=== PATIENT | female | born 1950 | race Caucasian/White ===

== ENCOUNTER → 2018-02-04 11:41 | Outpatient (CLI) | payer MEDICARE, OTHER, SELFPAY ==
--- NOTE | 2018-02-04 | DI.MG.S_ITS ---
BILATERAL DIGITAL SCREENING MAMMOGRAM 3D/2D WITH CAD: 02/04/2018 CLINICAL: Routine screening. Comparison is made to exams dated: 02/03/2017 mammogram, 01/16/2015 mammogram, and 12/29/2013 mammogram - [facility]. There are scattered fibroglandular elements in both breasts. Current study was also evaluated with a Computer Aided Detection (CAD) system. No significant masses, calcifications, or other findings are seen in either breast. There has been no significant interval change. IMPRESSION: NEGATIVE There is no mammographic evidence of malignancy. A 1 year screening mammogram is recommended. NOTE: For mammograms, a report in lay terms will be sent to the patient. Approximately 15% of breast malignancies will not be visualized mammographically. In the management of a palpable breast mass, a negative mammogram must not discourage biopsy of a clinically suspicious lesion. Electronically Signed By: Gali prince/keven:02/04/2018 13:46:32 letter sent: Normal Exam ACR BI-RADS Category 1: Negative 3341F
== END ==
PROVIDERS: Family Provider Physician Assistant; PCP Physician Assistant; Visit Provider Physician Assistant
DX: Z12.31 Encounter for screening mammogram for malignant neoplasm of breast (principal)
CPT/HCPCS: 77063; 77067

== ENCOUNTER → 2019-01-23 11:31 | Outpatient (CLI) | payer MEDICARE, OTHER, SELFPAY ==
--- NOTE | 2019-01-23 11:34 | DI.RAD.S_ITS ---
PROCEDURE: XR FINGER LT MIN 2V INDICATIONS: Fall, swelling, bruising over proximal finger TECHNIQUE: AP hand, 2 views of the left fifth finger(s) acquired. COMPARISON: None. FINDINGS: Bones: Mildly displaced fracture of the proximal aspect of the proximal phalanx of the fifth digit. Soft tissues: No suspicious soft tissue calcifications. IMPRESSION: Fifth digit fracture. Dictated by: Madelaine Villasenor M.D. on 01/23/2019 at 10:55 Approved by: Madelaine Villasenor M.D. on 01/23/2019 at 10:55
== END ==
PROVIDERS: Family Provider Internal Medicine; PCP Physician Assistant; Visit Provider Physician Assistant
DX: S62.617A Displaced fracture of proximal phalanx of left little finger, initial encounter for closed fracture (principal); W19.XXXA Unspecified fall, initial encounter
CPT/HCPCS: 73140

== ENCOUNTER → 2019-02-09 08:47 | Outpatient (CLI) | payer MEDICARE, OTHER, SELFPAY ==
--- NOTE | 2019-02-09 | DI.MG.S_ITS ---
BILATERAL DIGITAL SCREENING MAMMOGRAM 3D/2D WITH CAD: 02/09/2019 CLINICAL: Routine screening. Comparison is made to exams dated: 12/12/2010 mammogram, 02/04/2018 mammogram, 02/03/2017 mammogram, 01/16/2015 mammogram, and 12/29/2013 mammogram - [facility]. There are scattered fibroglandular elements in both breasts. Current study was also evaluated with a Computer Aided Detection (CAD) system. There are benign calcifications in both breasts. No significant masses, calcifications, or other findings are seen in either breast. There has been no significant interval change. IMPRESSION: There is no mammographic evidence of malignancy. A 1 year screening mammogram is recommended. This exam was interpreted at Station ID: [id number]. NOTE: For mammograms, a report in lay terms will be sent to the patient. Approximately 15% of breast malignancies will not be visualized mammographically. In the management of a palpable breast mass, a negative mammogram must not discourage biopsy of a clinically suspicious lesion. Electronically Signed By: Binh hancock/keven:02/09/2019 11:26:25 letter sent: Normal Exam ACR BI-RADS Category 2: Benign Finding(s) 3342F
== END ==
PROVIDERS: PCP Internal Medicine; Visit Provider Internal Medicine
DX: Z12.31 Encounter for screening mammogram for malignant neoplasm of breast (principal)
CPT/HCPCS: 77063; 77067

== ENCOUNTER → 2020-02-15 16:36 | Outpatient (CLI) | payer MEDICARE, OTHER, SELFPAY ==
--- NOTE | 2020-02-15 16:37 | DI.MG.S_ITS ---
BILATERAL DIGITAL SCREENING MAMMOGRAM 3D/2D WITH CAD: 02/15/2020 CLINICAL: Routine screening. Comparison is made to exams dated: 02/09/2019 mammogram, 02/04/2018 mammogram, and 02/03/2017 mammogram - [facility]. There are scattered fibroglandular elements in both breasts. Current study was also evaluated with a Computer Aided Detection (CAD) system. There are benign calcifications in both breasts. No significant masses, calcifications, or other findings are seen in either breast. There has been no significant interval change. IMPRESSION: There is no mammographic evidence of malignancy. A 1 year screening mammogram is recommended. This exam was interpreted at Station ID: [id number]. NOTE: For mammograms, a report in lay terms will be sent to the patient. Approximately 15% of breast malignancies will not be visualized mammographically. In the management of a palpable breast mass, a negative mammogram must not discourage biopsy of a clinically suspicious lesion. Electronically Signed By: Binh hancock/keven:02/15/2020 17:02:36 letter sent: Normal Exam ACR BI-RADS Category 2: Benign Finding(s) 3342F
== END ==
PROVIDERS: PCP Internal Medicine; Referring Provider Internal Medicine; Visit Provider Internal Medicine
DX: Z12.31 Encounter for screening mammogram for malignant neoplasm of breast (principal)
CPT/HCPCS: 77063; 77067

== ENCOUNTER → 2020-03-06 07:34 | Outpatient (CLI) | payer MEDICARE, OTHER, SELFPAY ==
[2020-03-06 09:01] LABS: Add Manual Diff / Slide Review NO; Basophils Absolute Auto 0 /uL (0-100); Basophils Percent Auto 1.1 % (0-2); Eosinophils Absolute Auto 0 /uL (0-450); Eosinophils Percent Auto 1.4 % (2-4); Hematocrit 37.1 % (36-46); Hemoglobin 12.6 g/dL (12.0-16.0); Lymphocytes Absolute Auto 800 /uL (1100-4500); Lymphocytes Percent Auto 24.3 % (25-40); Mean Corpuscular Hemoglobin 32.6 PG (26-34); Mean Corpuscular Volume 95.9 fL (80-100); Monocytes Absolute Auto 300 /uL (0-900); Monocytes Percent Auto 9.6 % (3-14); Neutrophils Absolute Auto 2200 /uL (1500-7000); Neutrophils Percent Auto 63.6 % (50-75); Platelet Count 197 X10^3/uL (150-400); Red Blood Cell Count 3.87 X10^6/uL (4.0-5.2); Red Cell Distribution Width 13.4 % (11.6-14.8); White Blood Cell Count 3.4 X10^3/uL (4.5-11.0)
[2020-03-06 09:22] LABS: Alanine Aminotransferase 16 IU/L (<35); Albumin 4.1 g/dL (3.5-5.0); Albumin Globulin Ratio 1.4 (1.0-2.8); Alkaline Phosphatase 80 U/L (38-126); Aspartate Aminotransferase 30 IU/L (14-36); BUN Creatinine Ratio 23.7 (6-22); Bilirubin Total 0.7 mg/dL (0.2-1.3); Blood Urea Nitrogen 14 mg/dL (7-17); Calcium 9.4 mg/dL (8.4-10.2); Carbon Dioxide 30 mmol/L (22-32); Chloride 105 mmol/L (98-107); Cholesterol 224 mg/dL (140-199); Estimated Glomerular Filt Rate > 60.0 mL/min (>60); Globulin 2.9 g/dL (1.7-4.1); Glucose 88 mg/dL (80-110); HDL Cholesterol 66 mg/dL (40-60); HEMOLYSIS < 15 (0-50); LDL Cholesterol Calculated 139 mg/dL (<100); Potassium 4.2 mmol/L (3.4-5.1); Sodium 138 mmol/L (137-145); Triglycerides 94 mg/dL (35-150)
[2020-03-06 09:34] LABS: Vitamin D 25 Hydroxy (D3) 57.8 ng/mL (30.0-100.0)
[2020-03-06 09:54] LABS: TSH w/ Reflex to FT4 2.63 uIU/mL (0.47-4.68)
== END ==
PROVIDERS: PCP Internal Medicine; Referring Provider Internal Medicine; Visit Provider Internal Medicine
DX: M81.0 Age-related osteoporosis without current pathological fracture (principal); Z13.220 Encounter for screening for lipoid disorders; I89.0 Lymphedema, not elsewhere classified; R53.83 Other fatigue; E78.5 Hyperlipidemia, unspecified
CPT/HCPCS: 36415; 80053; 80061; 82306; 84443; 85025

== ENCOUNTER → 2020-12-20 07:01 | Outpatient (CLI) | payer MEDICARE, OTHER, SELFPAY ==
[2020-12-20 08:21] LABS: Add Manual Diff / Slide Review NO; Basophils Absolute Auto 0 /uL (0-100); Basophils Percent Auto 1.1 % (0-2); Eosinophils Absolute Auto 100 /uL (0-450); Eosinophils Percent Auto 1.8 % (2-4); Hematocrit 36.8 % (36-46); Hemoglobin 12.4 g/dL (12.0-16.0); Lymphocytes Absolute Auto 900 /uL (1100-4500); Lymphocytes Percent Auto 26.3 % (25-40); Mean Corpuscular HGB Conc 33.7 % (30-36); Mean Corpuscular Hemoglobin 32.2 PG (26-34); Mean Corpuscular Volume 95.5 fL (80-100); Monocytes Absolute Auto 400 /uL (0-900); Neutrophils Absolute Auto 2100 /uL (1500-7000); Neutrophils Percent Auto 59.8 % (50-75); Platelet Count 171 X10^3/uL (150-400); Red Blood Cell Count 3.85 X10^6/uL (4.0-5.2); White Blood Cell Count 3.5 X10^3/uL (4.5-11.0)
[2020-12-20 08:33] LABS: Alanine Aminotransferase 17 IU/L (<35); Albumin Globulin Ratio 1.5 (1.0-2.8); Alkaline Phosphatase 86 U/L (38-126); Aspartate Aminotransferase 31 IU/L (14-36); BUN Creatinine Ratio 29.8 (6-22); Bilirubin Total 0.5 mg/dL (0.2-1.3); Blood Urea Nitrogen 17 mg/dL (7-17); Calcium 9.5 mg/dL (8.4-10.2); Carbon Dioxide 27 mmol/L (22-32); Chloride 104 mmol/L (98-107); Cholesterol 222 mg/dL (140-199); Estimated Glomerular Filt Rate > 60.0 mL/min (>60); Globulin 2.7 g/dL (1.7-4.1); Glucose 80 mg/dL (80-110); HDL Cholesterol 65 mg/dL (40-60); HEMOLYSIS < 15 (0-50); LDL Cholesterol Calculated 139 mg/dL (<100); Potassium 4.3 mmol/L (3.4-5.1); Sodium 138 mmol/L (137-145); Total Protein 6.7 g/dL (6.3-8.2); Triglycerides 89 mg/dL (35-150)
== END ==
PROVIDERS: PCP Family Medicine; Referring Provider Family Medicine; Visit Provider Family Medicine
DX: E78.5 Hyperlipidemia, unspecified (principal)
CPT/HCPCS: 36415; 80053; 80061; 85025

== ENCOUNTER → 2021-03-29 15:23 | Outpatient (CLI) | payer MEDICARE, OTHER, SELFPAY ==
--- NOTE | 2021-03-29 15:26 | DI.MG.S_ITS ---
BILATERAL DIGITAL SCREENING MAMMOGRAM 3D/2D WITH CAD: 03/29/2021 CLINICAL: Routine screening. Comparison is made to exams dated: 02/15/2020 mammogram, 02/09/2019 mammogram, and 02/04/2018 mammogram - [facility]. There are scattered fibroglandular elements in both breasts. Current study was also evaluated with a Computer Aided Detection (CAD) system. There are benign calcifications in both breasts. No significant masses, calcifications, or other findings are seen in either breast. There has been no significant interval change. IMPRESSION: BENIGN There is no mammographic evidence of malignancy. A 1 year screening mammogram is recommended. This exam was interpreted at Station ID: [id number]. NOTE: For mammograms, a report in lay terms will be sent to the patient. Approximately 15% of breast malignancies will not be visualized mammographically. In the management of a palpable breast mass, a negative mammogram must not discourage biopsy of a clinically suspicious lesion. Electronically Signed By: Prince Mo M.D., jr/keven:03/29/2021 16:18:10 letter sent: Normal Exam ACR BI-RADS Category 2: Benign Finding(s) 3342F
== END ==
PROVIDERS: PCP Family Medicine; Referring Provider Family Medicine; Visit Provider Family Medicine
DX: Z12.31 Encounter for screening mammogram for malignant neoplasm of breast (principal)
CPT/HCPCS: 77063; 77067

== ENCOUNTER 2021-07-29 13:59 | Emergency (ER) | payer MEDICARE, OTHER, SELFPAY ==
[2021-07-29] VITALS (7 sets, daily range): BP systolic 156–180; BP diastolic 71–81; PULSE 57–67; RESP 13–22; TEMP 36.4; O2SAT 98–100; BMI 30.4
--- NOTE | 2021-07-29 14:09 | DI.RAD.S_ITS ---
PROCEDURE: XR CHEST 1V INDICATIONS: chest pain TECHNIQUE: One view of the chest was acquired. COMPARISON: None. FINDINGS: Surgical changes and devices: None. Lungs and pleura: Minor strandy opacity in the right infrahilar region. No dense consolidations. No pleural effusions or pneumothorax. Mediastinum: Mediastinal contours appear normal. Heart size is mildly enlarged. Bones and chest wall: No suspicious bony lesions. Overlying soft tissues appear unremarkable. IMPRESSION: 1. Mild cardiomegaly. 2. Minor alveolar opacity in the right infrahilar region, potentially infection or aspiration. Dictated by: Sachi Segovia M.D. on 07/29/2021 at 14:49 Approved by: Sachi Segovia M.D. on 07/29/2021 at 14:50
[2021-07-29 14:27] LABS: Add Manual Diff / Slide Review NO; Basophils Absolute Auto 0 /uL (0-100); Eosinophils Absolute Auto 100 /uL (0-450); Eosinophils Percent Auto 1.9 % (2-4); Hematocrit 35.1 % (36-46); Lymphocytes Absolute Auto 1200 /uL (1100-4500); Lymphocytes Percent Auto 30.7 % (25-40); Mean Corpuscular HGB Conc 34.2 % (30-36); Mean Corpuscular Hemoglobin 32.6 PG (26-34); Mean Corpuscular Volume 95.3 fL (80-100); Monocytes Absolute Auto 400 /uL (0-900); Monocytes Percent Auto 10.3 % (3-14); Neutrophils Absolute Auto 2300 /uL (1500-7000); Neutrophils Percent Auto 56.1 % (50-75); Platelet Count 199 X10^3/uL (150-400); Red Blood Cell Count 3.68 X10^6/uL (4.0-5.2); Red Cell Distribution Width 13.4 % (11.6-14.8)
[2021-07-29 14:40] LABS: Alanine Aminotransferase 16 IU/L (<35); Albumin 4.2 g/dL (3.5-5.0); Albumin Globulin Ratio 1.4 (1.0-2.8); Alkaline Phosphatase 89 U/L (38-126); Aspartate Aminotransferase 31 IU/L (14-36); Bilirubin Total 0.4 mg/dL (0.2-1.3); Blood Urea Nitrogen 13 mg/dL (7-17); Calcium 9.3 mg/dL (8.4-10.2); Carbon Dioxide 27 mmol/L (22-32); Chloride 103 mmol/L (98-107); Creatine Kinase 75 U/L (30-135); Estimated Glomerular Filt Rate > 60.0 mL/min (>60); Globulin 2.9 g/dL (1.7-4.1); Glucose 100 mg/dL (80-110); HEMOLYSIS < 15 (0-50); Lipase 109 U/L (23-300); Magnesium 2.1 mg/dL (1.6-2.3); Potassium 3.6 mmol/L (3.4-5.1); Sodium 136 mmol/L (137-145); Total Protein 7.1 g/dL (6.3-8.2)
[2021-07-29 14:51] LABS: Troponin I < 0.012 ng/mL (0.01-0.034)
[2021-07-29 17:49] LABS: COVID19 -Nasal RAPID Negative (Negative)
--- NOTE | 2021-07-29 17:51 | ED_ITS ---
HPI - Chest Pain General Chief Complaint: Chest Pain Stated Complaint: vibrations in left side of chest. Sent by PCP Time Seen by Provider: 07/29/21 17:16 Source: patient Mode of arrival: Ambulatory Limitations: no limitations Limitations: no limitations Related Data Previous Rx's Medication Instructions Recorded lisinopril 10 mg tablet 10 mg PO DAILY #90 tab 03/27/21 Allergies Allergy/AdvReac Type Severity Reaction Status Date / Time hydrocodone [From VICODIN] Allergy Unknown nausea/vomi Verified 12/24/20 08:24 tting Review of Systems Review of Systems ROS Unobtainable: All systems reviewed & are unremarkable except as noted in HPI and below Patient History Medical History (Updated 12/24/20 @ 09:07 by Octavio Jones DO) Borderline hyperlipidemia Borderline hypertension Carpal tunnel syndrome of left wrist Cataracts, bilateral (~2018) Chicken pox Mumps Plantar warts Postnasal drip Surgical History (Updated 09/12/20 @ 20:45 by Jaye Osuna) Anesthesia H/O left wrist surgery (~1999) History of knee replacement (~2014) History of surgery (~2015) History of third molar tooth extraction History of tonsillectomy Status post delivery Status post delivery (08/19/81) Social History Smoking Status: Never smoker Smoking Status: Never smoker Exam Initial Vital Signs Initial Vital Signs: Vital Signs Temperature 97.6 F 07/29/21 14:06 Pulse Rate 67 07/29/21 14:06 Respiratory Rate 18 07/29/21 14:06 Blood Pressure 180/81 H 07/29/21 14:06 Pulse Oximetry 98 07/29/21 14:06 Course Orders Ordered: ED Orders 07/29/21 14:06 EKG-12 Lead Stat 07/29/21 14:09 XR chest 1V Stat 07/29/21 14:19 Complete Blood Count AUTO DIFF Stat Comprehensive Metabolic Panel Stat Lipase Stat Magnesium Stat Troponin & CK Cardiac Panel Stat 07/29/21 17:11 EKG-12 Lead Stat 07/29/21 17:21 COVID19 -Nasal swab/Pre-Proc Stat Troponin I Stat Vital Signs Vital signs: Vital Signs - 8 hr 07/29/21 14:06 07/29/21 17:24 07/29/21 17:30 Temperature 97.6 F Pulse Rate 67 61 57 L Respiratory Rate 18 22 13 Blood Pressure 180/81 H Pulse Oximetry 98 100 100 MDM - Chest Pain Lab Data Result diagrams: 07/29/21 14:19 07/29/21 14:19 Labs: Lab Results 07/29/21 07/29/21 07/29/21 Range/Units 14:19 14:19 17:21 WBC 4.0 L (4.5-11.0) X10^3/uL RBC 3.68 L (4.0-5.2) X10^6/uL Hgb 12.0 (12.0-16.0) g/dL Hct 35.1 L (36-46) % MCV 95.3 (80-100) fL MCH 32.6 (26-34) PG MCHC 34.2 (30-36) % RDW 13.4 (11.6-14.8) % Plt Count 199 (150-400) X10^3/uL Neut % (Auto) 56.1 (50-75) % Lymph % (Auto) 30.7 (25-40) % Colbert % (Auto) 10.3 (3-14) % Eos % (Auto) 1.9 L (2-4) % Baso % (Auto) 1.0 (0-2) % Neut # (Auto) 2300 (7694-7876) /uL Lymph # (Auto) 1200 (8272-3165) /uL Colbert # (Auto) 400 (0-900) /uL Eos # (Auto) 100 (0-450) /uL Baso # (Auto) 0 (0-100) /uL Sodium 136 L (137-145) mmol/L Potassium 3.6 (3.4-5.1) mmol/L Chloride 103 (98-107) mmol/L Carbon Dioxide 27 (22-32) mmol/L BUN 13 (7-17) mg/dL Creatinine 0.62 (0.52-1.04) mg/dL Estimated GFR > 60.0 (>60) mL/min BUN/Creatinine Ratio 21.0 (6-22) Glucose 100 (80-110) mg/dL Calcium 9.3 (8.4-10.2) mg/dL Magnesium 2.1 (1.6-2.3) mg/dL Total Bilirubin 0.4 (0.2-1.3) mg/dL AST 31 (14-36) IU/L ALT 16 (<35) IU/L Alkaline Phosphatase 89 (38-126) U/L Total Creatine Kinase 75 (30-135) U/L CK-MB (CK-2) TNP CK-MB (CK-2) Rel Index TNP Troponin I < 0.012 (0.01-0.034) ng/mL Total Protein 7.1 (6.3-8.2) g/dL Albumin 4.2 (3.5-5.0) g/dL Globulin 2.9 (1.7-4.1) g/dL Albumin/Globulin Ratio 1.4 (1.0-2.8) Lipase 109 (23-300) U/L SARS-CoV-2 (PCR) Negative (Negative) Discharge Plan Departure Prescriptions: No Action lisinopril 10 mg tablet 10 mg PO DAILY Qty: 90 3RF Rx Instructions: Take one tablet by mouth once a day. Referrals: Octavio Jones, [Primary Care Provider] -
[2021-07-29 17:54] LABS: Troponin I < 0.012 ng/mL (0.01-0.034)
--- NOTE | 2021-07-29 18:41 | ED.CHESTPAIN ---
HPI - Chest Pain General Chief Complaint: Chest Pain Stated Complaint: vibrations in left side of chest. Sent by PCP Time Seen by Provider: 07/29/21 18:40 Source: patient Mode of arrival: Ambulatory Limitations: no limitations History of Present Illness HPI narrative: Patient is a 71-year-old female with history of hypertension, hyperlipidemia presenting today with chest discomfort on the left side of her chest for the last 2 days. She says it feels like a vibration started after she was hiking. She is very active she goes to the gym 5 days a week she started lifting different types of weeks this week as well doing overhead pull Downs she thought maybe it was related to that. It does not hurt whenever she moves or breathes. She denies any shortness of breath. She says that she has felt it numerous times while in the emergency department. She has no fever chills cough no nausea vomiting no abdominal pain. It is not reproducible palpation. Related Data Previous Rx's Medication Instructions Recorded lisinopril 10 mg tablet 10 mg PO DAILY #90 tab 03/27/21 Allergies Allergy/AdvReac Type Severity Reaction Status Date / Time hydrocodone [From VICODIN] Allergy Unknown nausea/vomi Verified 12/24/20 08:24 tting Review of Systems Review of Systems Narrative: GENERAL: Denies chills, fatigue, malaise, fever, sweats, travel HEENT: Denies sinus pain, ear pain, sore throat, difficulty swallowing, neck pain RESPIRATORY: Denies dyspnea, cough, wheezing, hemoptysis, sputum. CARDIOVASCULAR: See HPI GASTROINTESTINAL: Denies nausea, vomiting, abdominal pain, diarrhea, constipation, melena. : Denies dysuria, frequency, incontinence, hematuria, urinary retention, flank pain. MUSCULOSKELETAL: Denies weakness, joint pain, or bony pain SKIN: No rash, no erythema, no pruritus NEUROLOGIC: Denies weakness, dizziness, headache, numbness, change in speech, confusion PSYCHIATRIC: No concerning psychosocial issues. 12 point review of systems is negative except for those stated above and HPI Patient History Medical History Borderline hyperlipidemia Borderline hypertension Carpal tunnel syndrome of left wrist Cataracts, bilateral (~2019) Chicken pox Mumps Plantar warts Postnasal drip Surgical History Anesthesia H/O left wrist surgery (~1999) History of knee replacement (~2014) History of surgery (~2015) History of third molar tooth extraction History of tonsillectomy Status post delivery Status post delivery (08/19/81) Social History Smoking Status: Never smoker Smoking Status: Never smoker Exam Initial Vital Signs Initial Vital Signs: Vital Signs Temperature 97.6 F 07/29/21 14:06 Pulse Rate 67 07/29/21 14:06 Respiratory Rate 18 07/29/21 14:06 Blood Pressure 180/81 H 07/29/21 14:06 Pulse Oximetry 98 07/29/21 14:06 GENERAL: Alert well-appearing 71-year-old female and in no acute distress. HEENT: Head atraumatic,EOMI, pupils reactive, face symmetric, moist mucous membranes CARDIOVASCULAR: Regular rate and rhythm without murmurs, rubs or gallops. RESPIRATORY: Breath sounds equal bilaterally, no wheezes rales or rhonchi. ABDOMEN: Soft, nontender. Normoactive bowel sounds all 4 quadrants. No guarding or rebound. EXTREMITIES: Normal range of motion, no clubbing or edema. Neurovascularly intact NEUROLOGICAL: Alert and oriented x4.Normal gait and speech. SKIN: Warm, dry, no laceration, no petechiae, no rashes or lesions. Scores HEART Score Heart Score history: Slightly Suspicious Heart Score EKG: Normal Heart Score Age: > or = 65 years old Heart Score risk factors: 1-2 risk factors Heart Score troponin: < or = to normal limit Heart Score Total: 3 Course Orders Ordered: ED Orders 07/29/21 17:21 COVID19 -Nasal swab/Pre-Proc Stat Troponin I Stat 07/29/21 17:38 EKG-12 Lead Stat Vital Signs Vital signs: Vital Signs - 8 hr 07/29/21 17:24 07/29/21 17:30 07/29/21 18:00 Pulse Rate 61 57 L 57 L Respiratory Rate 22 13 17 Blood Pressure Pulse Oximetry 100 100 100 07/29/21 18:30 07/29/21 18:53 07/29/21 19:00 Pulse Rate 62 61 65 Respiratory Rate 17 13 19 Blood Pressure 156/71 H Pulse Oximetry 100 100 100 MDM - Chest Pain Lab Data Result diagrams: 07/29/21 14:19 07/29/21 14:19 Labs: Lab Results 07/29/21 07/29/21 07/29/21 Range/Units 14:19 14:19 17:21 WBC 4.0 L (4.5-11.0) X10^3/uL RBC 3.68 L (4.0-5.2) X10^6/uL Hgb 12.0 (12.0-16.0) g/dL Hct 35.1 L (36-46) % MCV 95.3 (80-100) fL MCH 32.6 (26-34) PG MCHC 34.2 (30-36) % RDW 13.4 (11.6-14.8) % Plt Count 199 (150-400) X10^3/uL Neut % (Auto) 56.1 (50-75) % Lymph % (Auto) 30.7 (25-40) % Chambers % (Auto) 10.3 (3-14) % Eos % (Auto) 1.9 L (2-4) % Baso % (Auto) 1.0 (0-2) % Neut # (Auto) 2300 (3811-4386) /uL Lymph # (Auto) 1200 (8431-8899) /uL Chambers # (Auto) 400 (0-900) /uL Eos # (Auto) 100 (0-450) /uL Baso # (Auto) 0 (0-100) /uL Sodium 136 L (137-145) mmol/L Potassium 3.6 (3.4-5.1) mmol/L Chloride 103 (98-107) mmol/L Carbon Dioxide 27 (22-32) mmol/L BUN 13 (7-17) mg/dL Creatinine 0.62 (0.52-1.04) mg/dL Estimated GFR > 60.0 (>60) mL/min BUN/Creatinine Ratio 21.0 (6-22) Glucose 100 (80-110) mg/dL Calcium 9.3 (8.4-10.2) mg/dL Magnesium 2.1 (1.6-2.3) mg/dL Total Bilirubin 0.4 (0.2-1.3) mg/dL AST 31 (14-36) IU/L ALT 16 (<35) IU/L Alkaline Phosphatase 89 (38-126) U/L Total Creatine Kinase 75 (30-135) U/L CK-MB (CK-2) TNP CK-MB (CK-2) Rel Index TNP Troponin I < 0.012 < 0.012 (0.01-0.034) ng/mL Total Protein 7.1 (6.3-8.2) g/dL Albumin 4.2 (3.5-5.0) g/dL Globulin 2.9 (1.7-4.1) g/dL Albumin/Globulin Ratio 1.4 (1.0-2.8) Lipase 109 (23-300) U/L SARS-CoV-2 (PCR) (Negative) 07/29/ Range/Units 17:21 WBC (4.5-11.0) X10^3/uL RBC (4.0-5.2) X10^6/uL Hgb (12.0-16.0) g/dL Hct (36-46) % MCV (80-100) fL MCH (26-34) PG MCHC (30-36) % RDW (11.6-14.8) % Plt Count (150-400) X10^3/uL Neut % (Auto) (50-75) % Lymph % (Auto) (25-40) % Chambers % (Auto) (3-14) % Eos % (Auto) (2-4) % Baso % (Auto) (0-2) % Neut # (Auto) (8002-1022) /uL Lymph # (Auto) (3505-4521) /uL Chambers # (Auto) (0-900) /uL Eos # (Auto) (0-450) /uL Baso # (Auto) (0-100) /uL Sodium (137-145) mmol/L Potassium (3.4-5.1) mmol/L Chloride (98-107) mmol/L Carbon Dioxide (22-32) mmol/L BUN (7-17) mg/dL Creatinine (0.52-1.04) mg/dL Estimated GFR (>60) mL/min BUN/Creatinine Ratio (6-22) Glucose (80-110) mg/dL Calcium (8.4-10.2) mg/dL Magnesium (1.6-2.3) mg/dL Total Bilirubin (0.2-1.3) mg/dL AST (14-36) IU/L ALT (<35) IU/L Alkaline Phosphatase (38-126) U/L Total Creatine Kinase (30-135) U/L CK-MB (CK-2) CK-MB (CK-2) Rel Index Troponin I (0.01-0.034) ng/mL Total Protein (6.3-8.2) g/dL Albumin (3.5-5.0) g/dL Globulin (1.7-4.1) g/dL Albumin/Globulin Ratio (1.0-2.8) Lipase (23-300) U/L SARS-CoV-2 (PCR) Negative (Negative) Imaging Data Chest x-ray: Radiologist's Impression: PROCEDURE:? XR CHEST 1V ? INDICATIONS:? chest pain ? TECHNIQUE:? One view of the chest was acquired.? ? COMPARISON:? None. ? FINDINGS:? ? Surgical changes and devices:? None.? ? Lungs and pleura:? Minor strandy opacity in the right infrahilar region.? No dense consolidations.? No pleural effusions or pneumothorax.? ? Mediastinum:? Mediastinal contours appear normal.? Heart size is mildly enlarged.? ? Bones and chest wall:? No suspicious bony lesions.? Overlying soft tissues appear unremarkable.? ? IMPRESSION:? 1. Mild cardiomegaly. 2. Minor alveolar opacity in the right infrahilar region, potentially infection or aspiration.? ? ? Dictated by: Sachi Segovia M.D. on 07/29/2021 at 14:49 ? ? ECG Data Interpretation: EKG 1. Normal sinus rhythm rate 63 WA interval 158 QRS [address] changes no T-wave inversions EKG 2. Sinus rhythm rate 69 WA interval 162 QRS 70 QTC 462 artifact noted no changes from prior MDM Narrative Medical decision making narrative: Patient has been on the monitor when emergency department whole time I have reviewed her monitor strip possibly an occasional PVC but certainly not frequent. Unclear what her vibration is it does not seem to be musculoskeletal from her recent exercise. At this time 2- troponins low heart score recommend she follow-up her primary care provider. sHe is noted be hypertensive in the emergency department she states that she takes her blood pressure medication at night. She is he is not having any severe pain or symptoms concerning for dissection, although this was considered. She has no shortness of breath or symptoms consistent with pulmonary embolism although this to was considered. Discharge Plan Departure Patient Disposition: Home Clinical Impression: Heart palpitations Instructions: DI for Arrhythmias Activity Restrictions/Additional Instructions: *You have been diagnosed with heart palpitation *What to do: At this time please follow-up with her primary care provider you may need a Holter monitor. Her blood pressure is noted to be slightly elevated in the emergency department please monitor at home intake blood pressure medications as directed *Continue to take medications as directed *Follow up with your primary care provider in 2-3 days or call [phone] *Return to ER if you should have increasing shortness of breath, palpitations dizziness lightheaded or chest pain or any new, worsening or concerning symptoms Prescriptions: No Action lisinopril 10 mg tablet 10 mg PO DAILY Qty: 90 3RF Rx Instructions: Take one tablet by mouth once a day. Referrals: Octavio Jones, [Primary Care Provider] -
== END 2021-07-29 19:15 | disposition home or self-care (01) ==
PROVIDERS: Emergency Medicine; Emergency Provider Emergency Medicine; PCP Family Medicine
DX: R00.2 Palpitations (principal); Z20.822 Contact with and (suspected) exposure to COVID-19
CPT/HCPCS: 36415; 71045; 80053; 82550; 83690; 83735; 84484; 85025; 87635; 93005; 99284; C9803

== ENCOUNTER → 2021-08-30 08:55 | Outpatient (CLI) | payer MEDICARE, OTHER, SELFPAY ==
[2021-08-30 09:19] LABS: COVID19 -Nasal RAPID Negative (Negative)
== END ==
PROVIDERS: PCP Family Medicine; Visit Provider Family Medicine Sleep Medicine
DX: Z20.822 Contact with and (suspected) exposure to COVID-19 (principal)
CPT/HCPCS: 87635

== ENCOUNTER → 2021-08-30 13:08 | Outpatient (CLI) | payer MEDICARE, OTHER, SELFPAY ==
--- NOTE | 2021-08-30 14:19 | P.PCN_ITS ---
Cardiac Stress Test Report Referral & Results Date Patient Seen: 08/30/21 Requesting provider: Octavio Jones Indication: Atypical chest pain Rest ECG: Unremarkable Procedure Note: Today following both written and verbal informed consent, the patient was exercised according to a standard Toy protocol. The patient exercised for a total of 8 minutes 38 seconds achieving a maximum heart rate of 184. Patient's maximum systolic blood pressure was 178. This was an estimated 10.1 MET's. There are no ST-T segment changes Normal heart rate and blood pressure response to exercise. Function aerobic impairment way of scale estimate at -50% or 150% of normal on active scale Patient with occasional PVCs including couplets triplets and runs of 4 all asymptomatic Patient with occasional PACs specially during the end of the exercise period, and in early recovery. She also seem to have brief runs of SVT with heart rate of 1 80+ at times. All of this appeared to be asymptomatic Impression: Excellent exercise capacity in a 71-year-old without evidence of ischemia Dysrhythmias as above, suggest 3-14 day business services sales agent for further confirmation Please note: Actual ECG tracings can be found in the PACS system.
== END ==
PROVIDERS: PCP Family Medicine; Referring Provider Family Medicine; Visit Provider Family Medicine
DX: R07.89 Other chest pain (principal); R00.2 Palpitations; Z20.822 Contact with and (suspected) exposure to COVID-19
CPT/HCPCS: 87635; 93016; 93017; 93018; C9803

== ENCOUNTER → 2022-02-17 09:14 | Outpatient (CLI) | payer MEDICARE, OTHER, SELFPAY ==
[2022-02-17 13:03] LABS: COVID19 -Nasal RAPID Negative (Negative)
== END ==
PROVIDERS: PCP Family Medicine; Visit Provider Surgery
DX: Z20.822 Contact with and (suspected) exposure to COVID-19 (principal); Z01.812 Encounter for preprocedural laboratory examination
CPT/HCPCS: 87635; C9803

== ENCOUNTER 2022-02-18 11:14 | Day surgery (SDC) | payer MEDICARE, OTHER, SELFPAY ==
[2022-02-18 11:27] VITALS: BP 156/83; PULSE 80; RESP 18; TEMP 36.3; O2SAT 94
[2022-02-18] MEDS: LACTATED RINGERS 1,000 ML 42 ML IV (11:39)
--- NOTE | 2022-02-18 12:02 | PM.HP.1 ---
History of Present Illness History of Present Illness Date Patient Seen: 02/18/22 Time Patient Seen: 12:02 Date of Onset of Symptoms: 02/18/22 Chief complaint: SDC Narrative: Colon cancer screening Patient History Medical History Borderline hyperlipidemia Borderline hypertension Carpal tunnel syndrome of left wrist Cataracts, bilateral (~2018) Chicken pox History of palpitations Mumps Plantar warts Postnasal drip Preventative health care Surgical History Anesthesia H/O left wrist surgery (~1999) History of knee replacement (~2014) History of surgery (~2015) History of third molar tooth extraction History of tonsillectomy Status post delivery Status post delivery (08/19/81) Family & Social History Social History: household members spouse Tobacco & Substance use: Smoking Status Never smoker alcohol intake never Substance Use Type marijuana Meds Home Medications and Allergies Home Medications Medication Instructions Recorded Confirmed Type lisinopril 10 mg tablet 10 mg PO DAILY #90 tabs 03/27/21 02/18/22 Rx pravastatin 20 mg tablet 20 mg PO BEDTIME #90 tabs 07/30/21 02/18/22 Rx aspirin 81 mg capsule 81 mg DAILY 02/18/22 02/18/22 History Allergies Allergy/AdvReac Type Severity Reaction Status Date / Time hydrocodone [From VICODIN] Allergy Unknown nausea/vomi Verified 02/18/22 11:25 tting Review of Systems Review of Systems Narrative: Occasional nausea ROS: Yes All systems reviewed with the patient and are negative except as otherwise documented Exam Vital Signs (past 8 hours): - 02/18/22 11:27 Temperature 97.4 F L Pulse Rate 80 Respiratory Rate 18 Blood Pressure 156/83 H Pulse Oximetry 94 Oxygen Delivery Method Room Air Oxygen Delivery Method Room Air Const General: cooperative and comfortable Nutritional Appearance: average body habitus HENMT Head: normal to inspection Ears: hearing grossly normal bilaterally Mouth: oral mucosae normal Eyes General: appearance normal, both eyes and all related structures Sclera: sclerae normal Neck Neck: trachea midline Chest Chest: normal inspection of the chest Resp Effort & Inspection: normal respiratory effort and able to speak in complete sentences Auscultation: clear to auscultation bilaterally Cardio Rate: regular rate Rhythm: regular rhythm GI Palpation: soft Skin General: no rashes or lesions noted Neuro General: patient alert, patient awake and patient oriented x3 Cognition: normal cognition Extrem General: full ROM Psych Appearance: grossly normal Attitude: cooperative Judgment: judgment good Assessment & Plan Assessment & Plan narrative: Colon cancer screening. Discussed a home trial of Prilosec [id number] for the nausea taking 1 a day for 2 weeks. Colonoscopy with moderate sedation COVID-19 COVID-19 status: Negative Time Spent With Patient Time with patient: less than 30 minutes Critical Care time: I spent a total of [] minutes of critical care time on this patient's care today; this time is exclusive of procedural time.
[2022-02-18] MEDS: ONDANSETRON 4 MG/2 ML INJ IV (12:08)
[2022-02-18 12:25] VITALS: BP 135/70; PULSE 71; RESP 16; TEMP 36.2; O2SAT 98
[2022-02-18] MEDS: MIDAZOLAM 5 MG/5 ML VIAL IV (12:26)
--- NOTE | 2022-02-18 12:26 | PM.OP.COLON ---
Operative Date/Time/Diagnoses Date of procedure: 02/18/22 Time of procedure: 12:26 Pre-op diagnosis: Screening colonoscopy Post-op diagnosis: same Procedure & Clinicians Study performed: Colonoscopy with moderate sedation Same procedure as scheduled: Yes Indications: Screening colonoscopy for Surgeon: Orquidea Quiroz Procedure Notes SCOAP/Timeout: Done Procedure in detail: Preop diagnosis: Colon cancer screening Postop diagnosis: Same Operative procedure: Colonoscopy with moderate sedation Surgeon: Frida Quiroz MD Anesthetic: Versed 5 mg, fentanyl 175 mcg Findings: Normal colonoscopy. No diverticula, no polyps Procedure: Patient was placed in the lateral position. Rectal exam performed showing normal tone no masses. Colonoscope inserted into the rectum advanced to ileocecal valve with minimal difficulty. Insufflation and extraction of the scope and the above findings including retroflex in the rectum. Impression: Normal colonoscopy. Plan: Repeat colonoscopy in 10 years unless otherwise indicated by change in clinical condition or family history Sedation minutes: 15 Specimen(s): none sent Complications: none Impression: Normal colon Post-procedure Recommendations: Colonoscopy in 10 years Follow up: as needed Disposition: PACU
[2022-02-18] MEDS: fentaNYL 250 MCG/5 ML INJ 175 MCG IV (12:28)
[2022-02-18 12:30] VITALS: BP 138/74; PULSE 72; RESP 16; TEMP 36.8; O2SAT 98
[2022-02-18 12:35] VITALS: BP 134/78; PULSE 64; RESP 16; O2SAT 100
[2022-02-18 12:42] VITALS: BP 139/77; PULSE 72; RESP 16; O2SAT 98
== END 2022-02-18 12:58 | disposition home or self-care (01) ==
PROVIDERS: PCP Family Medicine; Referring Provider Surgery; Visit Provider Surgery
PROC: 0DJD8ZZ Inspection of Lower Intestinal Tract, Via Natural or Artificial Opening Endoscopic (ICD-10-PCS; CPT 45378; principal; 2022-02-18 13:00)
DX: Z12.11 Encounter for screening for malignant neoplasm of colon (principal)
CPT/HCPCS: G0121; 99152; J2250; J2405; J3010

== ENCOUNTER → 2022-04-01 08:19 | Outpatient (CLI) | payer MEDICARE, OTHER, SELFPAY ==
--- NOTE | 2022-04-01 | DI.MG.S_ITS ---
BILATERAL DIGITAL SCREENING MAMMOGRAM 3D/2D WITH CAD: 04/01/2022 CLINICAL: Routine screening. Comparison is made to exams dated: 03/29/2021 mammogram, 02/15/2020 mammogram, 02/09/2019 mammogram, 02/04/2018 mammogram, and 02/03/2017 mammogram - [facility]. There are scattered fibroglandular elements in both breasts. Current study was also evaluated with a Computer Aided Detection (CAD) system. There are benign vascular calcifications in both breasts. No significant masses, calcifications, or other findings are seen in either breast. There has been no significant interval change. IMPRESSION: BENIGN There is no mammographic evidence of malignancy. A 1 year screening mammogram is recommended. Based on the Tyrer Cuzick model (a risk assessment model) the patient's lifetime risk is 4.3% and her 10 year risk is 2.9%. According to the ACR, ACS, and NCCN guidelines, an annual breast MRI exam along with mammogram is recommended if the patient's lifetime risk is 20% or greater. This exam was interpreted at Station ID: [id number]. NOTE: For mammograms, a report in lay terms will be sent to the patient. Approximately 15% of breast malignancies will not be visualized mammographically. In the management of a palpable breast mass, a negative mammogram must not discourage biopsy of a clinically suspicious lesion. Electronically Signed By: Otto herrera/keven:04/01/2022 08:59:49 letter sent: Normal Exam ACR BI-RADS Category 2: Benign Finding(s) 3342F
== END ==
PROVIDERS: PCP Family Medicine; Referring Provider Family Medicine; Visit Provider Family Medicine
DX: Z12.31 Encounter for screening mammogram for malignant neoplasm of breast (principal)
CPT/HCPCS: 77063; 77067

== ENCOUNTER → 2023-04-02 14:38 | Outpatient (CLI) | payer MEDICARE, OTHER, SELFPAY ==
--- NOTE | 2023-04-02 | DI.MG.S_ITS ---
BILATERAL DIGITAL SCREENING MAMMOGRAM 3D/2D WITH CAD: 04/02/2023 CLINICAL: Routine screening. Comparison is made to exams dated: 04/01/2022 mammogram, 03/29/2021 mammogram, 02/15/2020 mammogram, and 02/09/2019 mammogram - [facility]. There are scattered areas of fibroglandular density in both breasts (category b / 25%-50% glandular tissue). Current study was also evaluated with a Computer Aided Detection (CAD) system. There are benign vascular calcifications in both breasts. No significant masses, calcifications, or other findings are seen in either breast. There has been no significant interval change. IMPRESSION: BENIGN There is no mammographic evidence of malignancy. A 1 year screening mammogram is recommended. Based on the Tyrer Cuzick model (a risk assessment model) the patient's lifetime risk is 4.1% and her 10 year risk is 3.0%. According to the ACR, ACS, and NCCN guidelines, an annual breast MRI exam along with mammogram is recommended if the patient's lifetime risk is 20% or greater. This exam was interpreted at Station ID: [id number]. NOTE: For mammograms, a report in lay terms will be sent to the patient. Approximately 15% of breast malignancies will not be visualized mammographically. In the management of a palpable breast mass, a negative mammogram must not discourage biopsy of a clinically suspicious lesion. Electronically Signed By: Otto herrera/keven:04/02/2023 17:25:37 letter sent: Normal Exam ACR BI-RADS Category 2: Benign Finding(s) 3342F
== END ==
PROVIDERS: PCP Family Medicine; Referring Provider Family Medicine; Visit Provider Family Medicine
DX: Z12.31 Encounter for screening mammogram for malignant neoplasm of breast (principal)
CPT/HCPCS: 77063; 77067

== ENCOUNTER → 2023-11-04 06:53 | Outpatient (CLI) | payer MEDICARE, OTHER, SELFPAY ==
[2023-11-04 08:02] LABS: Add Manual Diff / Slide Review NO; Basophils Absolute Auto 0 /uL (0-100); Eosinophils Absolute Auto 100 /uL (0-450); Eosinophils Percent Auto 2.7 % (2-4); Hematocrit 35.5 % (36-46); Hemoglobin 11.9 g/dL (12.0-16.0); Lymphocytes Absolute Auto 1000 /uL (1100-4500); Lymphocytes Percent Auto 28.6 % (25-40); Mean Corpuscular HGB Conc 33.6 % (30-36); Mean Corpuscular Hemoglobin 32.4 PG (26-34); Mean Corpuscular Volume 96.4 fL (80-100); Monocytes Absolute Auto 400 /uL (0-900); Monocytes Percent Auto 11.2 % (3-14); Neutrophils Absolute Auto 1900 /uL (1500-7000); Neutrophils Percent Auto 56.5 % (50-75); Platelet Count 177 X10^3/uL (150-400); Red Blood Cell Count 3.68 X10^6/uL (4.0-5.2); Red Cell Distribution Width 13.9 % (11.6-14.8); White Blood Cell Count 3.4 X10^3/uL (4.5-11.0)
[2023-11-04 08:03] LABS: HEMOLYSIS < 15 (0-50); Iron 142 ug/dL (37-170)
[2023-11-04 08:10] LABS: Alanine Aminotransferase 21 IU/L (<35); Albumin 4.1 g/dL (3.5-5.0); Albumin Globulin Ratio 1.4 (1.0-2.8); Alkaline Phosphatase 91 U/L (38-126); Aspartate Aminotransferase 32 IU/L (14-36); BUN Creatinine Ratio 34.4 (6-22); Bilirubin Total 0.8 mg/dL (0.2-1.3); Blood Urea Nitrogen 22 mg/dL (7-17); Calcium 9.6 mg/dL (8.4-10.2); Carbon Dioxide 29 mmol/L (22-32); Chloride 106 mmol/L (98-107); Cholesterol 185 mg/dL (140-199); Estimated Glomerular Filt Rate > 60 mL/min (>60); Glucose 84 mg/dL (80-110); HDL Cholesterol 74 mg/dL (40-60); HEMOLYSIS < 15 (0-50); LDL Cholesterol Calculated 96 mg/dL (<100); Potassium 5.1 mmol/L (3.4-5.1); Sodium 138 mmol/L (137-145); Total Protein 7.1 g/dL (6.3-8.2); Triglycerides 77 mg/dL (35-150)
[2023-11-04 08:14] LABS: Percent Iron Saturation 43 % (15-50); Total Iron Binding Capacity 331 ug/dL (265-497); Transferrin 263 mg/dL (206-381)
[2023-11-04 08:22] LABS: Free T3, Triiodothyronine Free 3.71 pg/mL (2.77-5.27); Free T4, Direct Thyroxine 0.87 ng/dL (0.78-2.19)
[2023-11-04 08:35] LABS: Thyroid Stimulating Hormone 3.63 uIU/mL (0.47-4.68)
[2023-11-04 08:56] LABS: Vitamin B12 > 1000 pg/mL (239-931)
[2023-11-04 09:44] LABS: Creatinine Urine Random 143.6 mg/dL
[2023-11-04 09:46] LABS: Microalbumi Creatinin Ratio Ur 4.8 ug/mg CR (<30); Microalbumin Urine Random 0.7 mg/dL (0-1.6)
[2023-11-06 14:20] LABS: Hep C Virus Ab w/Reflex Quant NEGATIVE s/c (NEGATIVE)
== END ==
PROVIDERS: PCP Nurse Practitioner; Referring Provider Nurse Practitioner; Visit Provider Nurse Practitioner
DX: I10 Essential (primary) hypertension (principal); E78.5 Hyperlipidemia, unspecified; Z87.898 Personal history of other specified conditions; Z79.899 Other long term (current) drug therapy; Z11.59 Encounter for screening for other viral diseases
CPT/HCPCS: 36415; 80053; 80061; 82043; 82570; 82607; 83540; 83550; 84439; 84443; 84481; 85025; 86803

== ENCOUNTER → 2023-12-04 13:48 | Outpatient (CLI) | payer MEDICARE, OTHER, SELFPAY ==
--- NOTE | 2023-12-04 13:51 | DI.ECHO.S_ITS ---
[facility] : : [address] : : [place] : : [id number] : : Phone: [phone] Echocardiogram Report + + :Name: NESTOR RUIZ Study Date: 12/04/2023 Height: 64 in : :Hospital ReadingLocation: Weight: 165 lb : : Gender: Female BSA: 1.8 m2 : :: 1950 Age: 73 yrs BP: 154/87 mmHg: :Reason For Study: HYPERTENSION : :Ordering Physician: GLEN, : :GARCIA Performed By: Prince Dunlap : :Referring: GARCIA CARROLL : + + Interpretation Summary The left ventricle is normal in size and wall thickness. Left ventricular systolic function is normal. The ejection fraction is estimated to be 55-60%. Diastolic parameters suggest probable normal left ventricular diastolic function and normal filling pressures. The right ventricle is borderline dilated. The right ventricular systolic function is normal. The right ventricular systolic pressure is estimated to be at least 41 mmHg based on an estimated right atrial pressure of 8 mm Hg. The left atrium is moderately dilated. There is no significant valvular heart disease. The aortic root is normal size. Procedure: A two-dimensional transthoracic echocardiogram with color flow and Doppler was performed. The study quality was technically adequate. There is no prior echocardiogram noted for this patient. The patient was in normal sinus rhythm during the exam. The heart rate ranged between 63-73 bpm during the study. Left Ventricle: The left ventricle is normal in size and wall thickness. Left ventricular systolic function is normal. The ejection fraction is estimated to be 55-60%. Diastolic parameters suggest probable normal left ventricular diastolic function and normal filling pressures. Right Ventricle: The right ventricle is borderline dilated. The right ventricular systolic function is normal. Atria: The left atrium is moderately dilated. Right atrial size is normal. The interatrial septum grossly appears intact with no obvious evidence for an atrial septal defect. Mitral Valve: The mitral valve is normal in structure and function. There is no mitral valve stenosis. There is trace mitral regurgitation. Aortic Valve: The aortic valve is trileaflet. There is no aortic valve stenosis. There is mild aortic regurgitation. Tricuspid Valve: The tricuspid valve is normal in structure and function. There is no tricuspid stenosis. There is mild tricuspid regurgitation. The right ventricular systolic pressure is estimated to be at least 41 mmHg based on an estimated right atrial pressure of 8 mm Hg. Pulmonic Valve: The pulmonic valve is not well visualized. There is no pulmonic valvular stenosis. There is a trace or physiologic amount of pulmonic regurgitation. There is no significant valvular heart disease. Great Vessels: The aortic root is normal size. The dimensions of the ascending aorta are normal. The IVC is dilated (diameter is greater than 2.1 cm) yet it collapses greater than 50% with a sniff. This suggests a right atrial pressure of 8 mm Hg. Pericardium/ Pleura There is no pericardial effusion. There is no pleural effusion. MMode/2D Measurements & Calculations LVIDd: 4.8 cm LVOT diam: 2.0 cm LVIDs: 3.6 cm Ao root diam: 3.0 cm FS: 24.4 % asc Aorta Diam: 3.4 cm IVSd: 0.87 cm Ao Arch Diam (Prox Trans): 2.6 cm LVPWd: 0.99 cm LV garcia. diameter/BSA (cm/m^2): 2.7 LV sys. diameter/BSA (cm/m^2): 2.0 LA A2 area: 21.7 cm2 RA long axis: 5.0 cm LA A4 area: 21.3 cm2 RA area: 16.8 cm2 LA length (vol): 5.8 cm RA vol: 47.9 ml LA vol: 67.5 ml RA : 26.6 ml/m2 LA vol index: 37.5 ml/m2 IVC diam: 2.7 cm RVD1 (basal): 4.0 cm RVD2 (mid): 3.7 cm TAPSE: 2.4 cm Doppler Measurements & Calculations Ao V2 max: 157.8 cm/sec LVOT Max Vinny: 144.8 cm/sec Ao V2 mean: 97.8 cm/sec LV V1 max P.4 mmHg Ao max P.0 mmHg LV V1 VTI: 31.4 cm Ao mean P.6 mmHg BIJAN(I,D): 2.7 cm2 Ao V2 VTI: 37.2 cm BIJAN(V,D): 2.9 cm2 sev ratio: 0.84 BIJAN indexed to BSA (cm^2/m^2): 1.5 AI P1/2t: 549.3 msec AI dec slope: 217.8 cm/sec2 MV E max vinny: 85.3 cm/sec TR max vinny: 287.1 cm/sec MV A max vinny: 71.9 cm/sec TR max P.0 mmHg MV E/A: 1.2 PA V2 max: 121.1 cm/sec Med Peak E' Vinny: 8.4 cm/sec PA V2 mean: 84.0 cm/sec E/E' med: 10.2 PA mean P.1 mmHg Lat Peak E' Vinny: 10.9 cm/sec PA pr(Accel): 49.9 mmHg E/E' lat: 7.9 E/e' average: 9.0 MV dec time: 0.15 sec SV(LVOT): 100.4 ml Reading Physician:03:13 PM
--- NOTE | 2023-12-04 13:52 | DI.RAD.S_ITS ---
PROCEDURE: XR DEXA AXIAL SKELETON INDICATIONS: Essential (primary) hypertension;Age-related osteo COMPARISON: [facility], , DEXA AXIAL SKELETON, 02/24/2017, 14:18. FINDINGS: Lumbar Spine: L2-L4. Bone mineral density 0.889 g/cm2, T score -1.7. Left Hip: Bone mineral density 0.650 g/cm2, T score -2.4. Left Femoral Neck: Bone mineral density 0.618 g/cm2, T score -2.1. Right Hip: Bone mineral density 0.675 g/cm2, T score -2.2. Right Femoral Neck: Bone mineral density 0.647 g/cm2, T score -1.8. Fracture Risk Calculation (when applicable): 10-year fracture risk of a major osteoporotic fracture 13 % and of a hip fracture 3 %. (T score greater or equal to -1.0 to: NORMAL) (T score from -1.1 to -2.4: OSTEOPENIA) (T score less than or equal to -2.5: OSTEOPOROSIS) IMPRESSION: Osteopenia. Follow-up guidelines as follows: Osteoporosis: Consider a repeat DEXA and Vertebral Fracture Assessment (VFA) exam in 2 years or sooner if medically necessary, to reassess this patient's status. Osteopenia: Consider a repeat DEXA in 2-3 years to reassess this patient's status, or if there is a new clinical indication. Normal: Consider a repeat DEXA in 5 years or sooner, or if there is a new clinical indication. Dictated by: Otto Fitzgerald M.D. on 12/04/2023 at 16:28 Approved by: Otto Fitzgerald M.D. on 12/04/2023 at 16:31
== END ==
PROVIDERS: PCP Nurse Practitioner; Referring Provider Nurse Practitioner; Visit Provider Nurse Practitioner
DX: M81.0 Age-related osteoporosis without current pathological fracture (principal); I10 Essential (primary) hypertension; I08.2 Rheumatic disorders of both aortic and tricuspid valves
CPT/HCPCS: 77080; 93306

== ENCOUNTER → 2024-04-05 12:37 | Outpatient (CLI) | payer MEDICARE, OTHER, SELFPAY ==
--- NOTE | 2024-04-05 12:38 | DI.MG.S_ITS ---
BILATERAL DIGITAL SCREENING MAMMOGRAM 3D/2D WITH CAD: 04/05/2024 CLINICAL: Routine screening. Comparison is made to exams dated: 04/02/2023 mammogram, 04/01/2022 mammogram, and 03/29/2021 mammogram - [facility]. There are scattered areas of fibroglandular density in both breasts (category b / 25%-50% glandular tissue). Current study was also evaluated with a Computer Aided Detection (CAD) system. There are benign vascular calcifications in both breasts. No significant masses, calcifications, or other findings are seen in either breast. There has been no significant interval change. IMPRESSION: BENIGN There is no mammographic evidence of malignancy. A 1 year screening mammogram is recommended. Based on the Tyrer Cuzick model (a risk assessment model) the patient's lifetime risk is 3.8% and her 10 year risk is 3.1%. According to the ACR, ACS, and NCCN guidelines, an annual breast MRI exam along with mammogram is recommended if the patient's lifetime risk is 20% or greater. This exam was interpreted at Station ID: [id number]. NOTE: For mammograms, a report in lay terms will be sent to the patient. Approximately 15% of breast malignancies will not be visualized mammographically. In the management of a palpable breast mass, a negative mammogram must not discourage biopsy of a clinically suspicious lesion. Electronically Signed By: Otto herrera/keven:04/05/2024 13:34:47 letter sent: Normal Exam ACR BI-RADS Category 2: Benign Finding(s) 3342F
== END ==
LOC: MAMMO 12:37
PROVIDERS: PCP Nurse Practitioner; Referring Provider Nurse Practitioner; Visit Provider Nurse Practitioner
DX: Z12.31 Encounter for screening mammogram for malignant neoplasm of breast (principal); R92.323 Mammographic fibroglandular density, bilateral breasts
CPT/HCPCS: 77063; 77067

== ENCOUNTER → 2024-06-10 07:39 | Outpatient (CLI) | payer MEDICARE, OTHER, SELFPAY ==
[2024-06-10 08:57] LABS: BUN Creatinine Ratio 23.9 (6-22); Blood Urea Nitrogen 16 mg/dL (7-17); Calcium 9.3 mg/dL (8.4-10.2); Carbon Dioxide 25 mmol/L (22-32); Chloride 105 mmol/L (98-107); Estimated Glomerular Filt Rate > 60 mL/min (>60); Glucose 84 mg/dL (80-110); HEMOLYSIS < 15 (0-50); Potassium 5.1 mmol/L (3.4-5.1); Sodium 135 mmol/L (137-145)
== END ==
PROVIDERS: PCP Family Medicine; Referring Provider Family Medicine; Visit Provider Nurse Practitioner
DX: Z01.812 Encounter for preprocedural laboratory examination (principal); M79.672 Pain in left foot; R22.42 Localized swelling, mass and lump, left lower limb; M85.80 Other specified disorders of bone density and structure, unspecified site; Z78.0 Asymptomatic menopausal state
CPT/HCPCS: 36415; 80048

== ENCOUNTER → 2024-11-09 06:49 | Outpatient (CLI) | payer MEDICARE, OTHER, SELFPAY ==
[2024-11-09 07:32] LABS: Add Manual Diff / Slide Review NO; Basophils Absolute Auto 0 /uL (0-100); Basophils Percent Auto 1.2 % (0-2); Eosinophils Absolute Auto 100 /uL (0-450); Hematocrit 36.3 % (36-46); Hemoglobin 12.3 g/dL (12.0-16.0); Lymphocytes Absolute Auto 900 /uL (1100-4500); Lymphocytes Percent Auto 30.7 % (25-40); Mean Corpuscular HGB Conc 33.8 % (30-36); Mean Corpuscular Hemoglobin 32.3 PG (26-34); Mean Corpuscular Volume 95.6 fL (80-100); Monocytes Absolute Auto 400 /uL (0-900); Neutrophils Absolute Auto 1600 /uL (1500-7000); Neutrophils Percent Auto 53.1 % (50-75); Platelet Count 177 X10^3/uL (150-400); Red Blood Cell Count 3.79 X10^6/uL (4.0-5.2); Red Cell Distribution Width 13.6 % (11.6-14.8); White Blood Cell Count 3.1 X10^3/uL (4.5-11.0)
[2024-11-09 07:56] LABS: HEMOLYSIS < 15 (0-50); Iron 137 ug/dL (37-170)
[2024-11-09 08:00] LABS: Alanine Aminotransferase 20 IU/L (<35); Albumin 4.5 g/dL (3.5-5.0); Albumin Globulin Ratio 1.7 (1.0-2.8); Alkaline Phosphatase 70 U/L (38-126); Aspartate Aminotransferase 34 IU/L (14-36); BUN Creatinine Ratio 22.6 (6-22); Bilirubin Total 0.8 mg/dL (0.2-1.3); Blood Urea Nitrogen 14 mg/dL (7-17); Calcium 9.6 mg/dL (8.4-10.2); Carbon Dioxide 26 mmol/L (22-32); Chloride 105 mmol/L (98-107); Cholesterol 188 mg/dL (140-199); Estimated Glomerular Filt Rate > 60 mL/min (>60); Globulin 2.6 g/dL (1.7-4.1); Glucose 95 mg/dL (80-110); HDL Cholesterol 73 mg/dL (40-60); HEMOLYSIS < 15 (0-50); LDL Cholesterol Calculated 96 mg/dL (<100); Sodium 137 mmol/L (137-145); Total Protein 7.1 g/dL (6.3-8.2); Triglycerides 95 mg/dL (35-150)
[2024-11-09 08:07] LABS: Percent Iron Saturation 44 % (15-50); Total Iron Binding Capacity 308 ug/dL (265-497); Transferrin 252 mg/dL (206-381)
[2024-11-09 08:32] LABS: Ferritin 42 ng/mL (11-264)
== END ==
PROVIDERS: PCP Family Medicine; Referring Provider Family Medicine; Visit Provider Family Medicine
DX: I10 Essential (primary) hypertension (principal); D64.9 Anemia, unspecified; M81.0 Age-related osteoporosis without current pathological fracture; E78.5 Hyperlipidemia, unspecified
CPT/HCPCS: 36415; 80053; 80061; 82728; 83540; 83550; 85025

== ENCOUNTER → 2025-01-18 06:43 | Outpatient (CLI) | payer MEDICARE, OTHER, SELFPAY ==
[2025-01-20 12:40] LABS: Creatinine, Urine 16.6 mg/dL (Not Estab.); N-telo/Creat. Ratio 15 (0-89); N-telopeptide 22 nmol BCE (Not Estab.)
== END ==
PROVIDERS: PCP Family Medicine; Referring Provider Family Medicine; Visit Provider Family Medicine
DX: M81.0 Age-related osteoporosis without current pathological fracture (principal); E78.5 Hyperlipidemia, unspecified; I10 Essential (primary) hypertension
CPT/HCPCS: 36415; 82523

== ENCOUNTER → 2025-02-01 12:27 | Outpatient (CLI) | payer MEDICARE, OTHER, SELFPAY ==
--- NOTE | 2025-02-01 12:34 | DI.RAD.S_ITS ---
PROCEDURE: XR DEXA AXIAL SKELETON INDICATIONS: bone density/pt needs yearly due to medication monitoring COMPARISON: [facility], CR, XR DEXA AXIAL SKELETON, 12/04/2023, 15:08. FINDINGS: Lumbar Spine: Bone mineral density 1.004 (previously 0.889) g/cm2, T score -0.7 (previously -1.7). Left Femoral Neck: Bone mineral density 0.619 (previously 0.618) g/cm2, T score -2.1 (previously -2.1). Left Hip: Bone mineral density 0.681 (previously 0.650) g/cm2, T score -2.1 (previously -2.4). Fracture Risk Calculation (when applicable): 10-year fracture risk of a major osteoporotic fracture 19 percent and of a hip fracture 4.6 percent. (T score greater or equal to -1.0 to: NORMAL) (T score from -1.1 to -2.4: OSTEOPENIA) (T score less than or equal to -2.5: OSTEOPOROSIS) IMPRESSION: Osteopenia--- recommend repeat DEXA in 2-3 years for reassessment. Follow-up guidelines as follows: Osteoporosis: Consider a repeat DEXA and Vertebral Fracture Assessment (VFA) exam in 2 years or sooner if medically necessary, to reassess this patient's status. Osteopenia: Consider a repeat DEXA in 2-3 years to reassess this patient's status, or if there is a new clinical indication. Normal: Consider a repeat DEXA in 5 years or sooner, or if there is a new clinical indication. All treatment decisions require clinical judgment and consideration of individual patient factors, including patient preferences, comorbidities, previous drug use, risk factors not captured in the FRAX model (e.g., frailty, falls, vitamin D deficiency, increased bone turnover, interval significant decline in bone density ) and possible under- or over-estimation of fracture risk by FRAX. In addition, the NOF Guide recommends that FDA-approved medical therapies be considered in postmenopausal women and men age >= 50 years with a: * Hip or vertebral (clinical or morphometric) fracture * T-score of <=-2.5 at the spine or hip * Ten-year fracture probability by FRAX of >= 3% for hip fracture or >=20% for major osteoporotic fracture. Dictated by: Pedro Booker M.D. on 02/01/2025 at 18:32 Approved by: Pedro Booker M.D. on 02/01/2025 at 18:37
== END ==
PROVIDERS: PCP Family Medicine; Referring Provider Family Medicine; Visit Provider Family Medicine
DX: M81.0 Age-related osteoporosis without current pathological fracture (principal); E78.5 Hyperlipidemia, unspecified; I10 Essential (primary) hypertension
CPT/HCPCS: 77080